=== PATIENT | male | born 1980 | race American Indian/Alaskan Native ===

== ENCOUNTER 2019-10-11 21:27 | Emergency (ER) | payer OTHER ==
[~2019-10-11] VITALS: Ht 167.6 cm; Wt 65.8 kg
--- NOTE | 2019-10-11 21:38 | NUR ---
PT PRESENTED TO ER AMBULATORY. C/O WOUND CHECK, DRAINAGE AA/OX4. ABLE TO SPEAK IN COMPLETE SENTENCES. ABLE TO MAKE NEEDS KNOWN RESPIRATION EVEN AND UNLABORED NO CARDIOVASCULAR DISTRESS NOTED DENIES N/V/D WOUND WITH CLEAR DRAINAGE SR UP FOR SAFETY. BED LOCKED, LOWEST POSITION. INSTRUCTED PT TO CALL NURSE FOR ASSISTANCE
[2019-10-11] MEDS ORDERED: CLIN300C11 PO (21:41)
--- NOTE | 2019-10-11 21:42 | NUR ---
Dr. Nassar at bedside for MSE
[2019-10-11] MEDS ORDERED: HYDROMORPHONE 2 MG/1 ML DISP.SYRIN ONE (21:55)
[2019-10-11] MEDS ORDERED: ONDANSETRON 4 MG/2 ML VIAL ONE (21:55)
[2019-10-11] MEDS ORDERED: SULFAMETH/TRIMETH 800/160 MG TABLET PO ONE (22:00)
[2019-10-11] MEDS ORDERED: ONDANSETRON 4 MG/2 ML VIAL IM ONE (22:00)
[2019-10-11] MEDS ORDERED: HYDROMORPHONE 1 MG/1 ML DISP.SYRIN IM ONE (22:00)
[2019-10-11] MEDS ORDERED: SULFAMETH/TRIMETH 800/160 MG TABLET ONE (22:11)
--- NOTE | 2019-10-11 22:38 | NUR ---
Patient discharged to home in stable condition. Written and verbal after care instructions given. Patient verbalizes understanding of instructions. Stressed follow up or return to ER for worsening s/s. AA/OX4. ABLE TO SPEAK IN COMPLETE SENTENCES. RESPIRATION EVEN AND UNLABORED AMBULATORY WITH STEADY GAIT INSTRUCTED PT NOT TO DRIVE PT STATED WILL WALK HOME
[2019-10-11 22:47] VITALS: BP 120/62
== END 2019-10-11 22:38 | disposition home or self-care (01) ==
LOC: ER 21:33
DX: S51.811D Laceration without foreign body of right forearm, subsequent encounter (principal); L08.9 Local infection of the skin and subcutaneous tissue, unspecified; W26.8XXD Contact with other sharp object(s), not elsewhere classified, subsequent encounter
CPT/HCPCS: 96372; 99283; J1170; J2405; A4663

== ENCOUNTER 2020-01-16 14:55 | Emergency (ER) | payer OTHER ==
[~2020-01-16] VITALS: Ht 167.6 cm; Wt 65.8 kg
[~2020-01-16 14:55] MED LIST: CLIN300C11 PO
--- NOTE | 2020-01-16 15:15 | NUR ---
Dr. Gr at bedside for MSE
[2020-01-16] MEDS ORDERED: NEOMY/BACITRA/POLYMYXIN B OINT UD PACKET TP ONE ×2 (15:44→16:30)
--- NOTE | 2020-01-16 15:46 | NUR ---
Patient discharged to home in stable condition. Written and verbal after care instructions given. Patient verbalizes understanding of instructions. Stressed follow up or return to ER for worsening s/s. Patient ambulated with steady gait. NAD noted
[2020-01-16] MEDS ORDERED: BACITRACIN ZINC OINT 15 GM TUBE TOP ONE (16:30)
[2020-01-16 16:33] VITALS: BP 131/72
== END 2020-01-16 15:46 | disposition home or self-care (01) ==
LOC: ER 15:00
DX: L03.012 Cellulitis of left finger (principal); S61.301A Unspecified open wound of left index finger with damage to nail, initial encounter; X58.XXXA Exposure to other specified factors, initial encounter; Y92.89 Other specified places as the place of occurrence of the external cause
CPT/HCPCS: A4217; A4663